=== PATIENT | male | born 1955 ===

== ENCOUNTER 2017-02-18 14:08 | Emergency (ER) | payer OTHER ==
[2017-02-18] MEDS ORDERED: NEOMYCIN-POLYMYXIN-HC EAR SUSP 200 DROP/10 ML BOT ONE (14:35)
[2017-02-18] MEDS ORDERED: Cephalexin 500 MG CAP ONE (14:35)
[2017-02-18] MEDS ORDERED: Naproxen 500 MG TAB ONE (14:38)
[2017-02-18] MEDS ORDERED: HYDROcodone/Acetaminophen 10/325 mg Tablet ONE (14:38)
[2017-02-18] MEDS ORDERED: diphenhydrAMINE HCl 25 MG CAP ONE (14:58)
[2017-02-18] MEDS ORDERED: Nitrofurantoin Monohyd/M-Cryst 100 MG CAP ONE (14:58)
[2017-02-18] MEDS ORDERED: Clindamycin 150 MG CAP ONE (15:00)
== END 2017-02-18 15:30 | disposition home or self-care (01) ==
LOC: MADERS 14:08
DX: H60.503 Unspecified acute noninfective otitis externa, bilateral (principal)
CPT/HCPCS: 99282